=== PATIENT | female | born 1995 | race Caucasian/White ===

== ENCOUNTER 2022-03-21 11:16 | Outpatient (CLI) | payer OTHER, SELFPAY ==
[2022-03-21 21:53] LABS: Chloride* 100 mmol/L (96-114); Potassium* 4.4 mmol/L (3.6-5.1); Sodium* 137 mmol/L (135-149)
[2022-03-21 21:56] LABS: Blood Urea Nitrogen* 10 mg/dL (5-24); Calcium* 9.7 mg/dL (8.4-10.6); Carbon Dioxide* 28 mmol/L (20-32); Creatinine* 0.6 mg/dL (0.5-1.5); Estimated Glomerular Filt Rate 126 ml/min; Glucose* 82 mg/dL (60-115)
[2022-03-21 21:57] LABS: Magnesium* 1.9 mg/dL (1.5-2.6)
[2022-03-21 22:14] LABS: Creatinine Urine 145.6 mg/dL
[2022-03-21 22:19] LABS: Microalbumin Creatinine Ratio 0 mg/g (0-30); Microalbumin Urine 1 mg/dL
== END 2022-03-21 11:17 | disposition home or self-care (01) ==
PROVIDERS: Visit Provider Family Medicine
DX: L73.2 Hidradenitis suppurativa (principal); R03.0 Elevated blood-pressure reading, without diagnosis of hypertension; Z13.1 Encounter for screening for diabetes mellitus
CPT/HCPCS: 80048; 82043; 82570; 83735

== ENCOUNTER 2022-04-29 14:35 | Outpatient (CLI) | payer OTHER, SELFPAY ==
[2022-04-29 21:58] LABS: Chloride* 100 mmol/L (96-114); Potassium* 4.2 mmol/L (3.6-5.1); Sodium* 136 mmol/L (135-149)
[2022-04-29 22:00] LABS: Creatinine* 0.6 mg/dL (0.5-1.5); Estimated Glomerular Filt Rate 126 ml/min
[2022-04-29 22:01] LABS: Blood Urea Nitrogen* 12 mg/dL (5-24); Calcium* 9.3 mg/dL (8.4-10.6); Carbon Dioxide* 29 mmol/L (20-32); Glucose* 128 mg/dL (60-115)
== END 2022-04-29 14:36 | disposition home or self-care (01) ==
LOC: FRMREF 15:38
PROVIDERS: PCP Family Medicine; Visit Provider Family Medicine
DX: L73.2 Hidradenitis suppurativa (principal); R53.83 Other fatigue
CPT/HCPCS: 80048; 84443

== ENCOUNTER 2023-04-13 15:41 | Outpatient (CLI) | payer OTHER, SELFPAY | END 2023-04-13 15:42 | disposition home or self-care (01) | PROVIDERS: PCP Family Medicine; Referring Provider Family Medicine; Visit Provider Family Medicine | DX: I10 Essential (primary) hypertension (principal); Z79.899 Other long term (current) drug therapy | CPT/HCPCS: 80053; 80061; 82043; 82570 ==

== ENCOUNTER 2023-05-17 15:45 | Outpatient (RCR) | payer OTHER, SELFPAY ==
--- NOTE | 2023-04-19 16:29 | PT.OPE ---
PT [place] [facility] PT [facility] Eval Start: 04/19/23 13:56 Freq: Status: Active Protocol: Document 04/19/23 16:26 CJT (Rec: 04/19/23 16:29 CJT [id number]) E-signed By Bladimir Singleton PT Physical Therapy Outpatient Evaluation Insurance Information Recert Due Date 07/18/23 Insurance Name [employer] Medical Diagnosis M25.572 - L foot pain Treating Diagnosis M25.572 - L ankle pain Referring Sharmin Hutchins DO Subjective Subjective Pt presents with complaints of L ankle pain following and injury at work on 03/15/23. 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 Pt thinks she rolled her ankle and this caused immediate pain in the lateral aspect of her ankle. Pt was seen in [facility] on 03/16/23. X-rays were negative for fracture. Pt was ambulatory immediately following her injury and remains ambulatory today. Her top complaint at this time is swelling at the end of the day . She is also concerned that her ankle pain isn't improving as it should. Pt also repots she broke her L foot about 4-5 years ago and doesn't think this fully healed. 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 Precautions Therapy Limitations/Systems Review Not Limited Objective Other/Pertinent Objective B hip AROM: WNL B knee AROM: WNL R ankle AROM Plantarflexion: 70 Dorsiflexion (knee flexed): 5 Dorsiflexion (knee extended): 5 EV: 20 IV: 30 L ankle AROM Plantarflexion: 70 Dorsiflexion (knee flexed): -2 Dorsiflexion (knee extended): -6 EV: 8 IV: 40 Strength R ankle DF: 5/5 MMT R ankle PF: 5/5 MMT R ankle EV: 5/5 MMT R ankle IV: 5/5 MMT L ankle DF: 5/5 MMT L ankle PF: 5/5 MMT L ankle EV: 4+/5 MMT L ankle IV: 5/5 MMT Palpation Navicular: non tender Base of 5th metatarsal: tender , pain noted with increased pressure Medial malleolus: non tender Lateral malleolus: nontender Special Testing Anterior Drawer: mildly positive Posterior Drawer: negative Talar Tilt: negative Valgus Stress: negative Varus Stress: negative Assessment Assessment/Impression Karishma is a very pleasant 27 year old female who presents to our clinic with complaints of lateral L ankle pain. Pts ankle was injured when she stepped into a small hole in the yard of her workplace ([employer]). Testing today reveals excellent preservation of strength. ROM is limited and this appears to be due to a combination of swelling and pain. 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 She will benefit from consistent strengthening, stretching, and massage to this region to facilitate blood flow and healing. The nature of the pts condition was explained and all questions were answered to the pts satisfaction. Skilled PT services are medically necessary to address deficits and return patient to highest level of function. Recommend physical therapy sessions 1/ week for 4-6 weeks. Pt agrees with this plan. Printout of HEP was given for I completion and pt gives verbal understanding of each exercise . Primary Functional Limitations Walking, squatting, crouching Plan of Care Rehabilitation Potential Excellent Physical Therapy Goals STG - To be completed in 2-3 weeks: 1. Pt will report consistent use of ice and elevation of injured limb following activity to allow for reduced inflammation and swelling in ankle. 2. Pt will report reduction of lateral ankle pain by factor of 2 with standing so that she may walk with improved comfort and less pain. LTG - To be completed in 6 weeks: 1. Pt to be I with HEP so that they may I manage progression of symptoms. 2. Pt will report absence of lateral ankle pain with light activities such as walking and riding bike so that they may walk/ride bike with friends for recreational exercise. 3. Pt will demonstrate ability to perform 10 single leg heel raises on injured limb without onset of pain as indication of improved strength and function of R ankle. Treatment Plan/Direct Interventions Ice/Cold/Vasopneumatic,Joint Mobilization,Manual Therapy, Neuromuscular Re-ed,Self-Care/ Home Management,Therapeutic Exercises,Ultrasound Frequency/Duration 1/week for 4-6 weeks Patient Will Be Discharged From Therapy Completion of LTG(s),Skills Plateau,Independent w/HEP, Independently Progressing Evaluation Billing Untimed Code Treatment Minutes 44 PT Eval No Charge No Complexity Low Certification Information Initial Certification Date 04/19/23 Ending Certification Date 07/18/23 Provider Signature Shows Agreement With POC & Medical Necessity Physician Signature & Date Requested Please Sign/Date Here Physician Comment/Change : Physician NPI Number #
== END 2023-07-18 10:13 | disposition home or self-care (01) ==
PROVIDERS: PCP Family Medicine; Visit Provider Family Medicine
DX: M79.672 Pain in left foot (principal); Z51.89 Encounter for other specified aftercare
CPT/HCPCS: 97110; 97140; 97161